=== PATIENT | male | born 1955 | race Caucasian/White ===

== ENCOUNTER 2020-01-03 08:15 | Emergency (ER) | payer OTHER ==
[~2020-01-03] VITALS: Ht 175.3 cm; Wt 84.5 kg
[2020-01-03 08:52] LABS: HEMATOCRIT 36.5 % (42.0-52.0); HEMOGLOBIN 12.2 gm/dL (14.0-18.0); MCH 27.5 pg (26.0-34.0); MCHC 33.5 g/dL (28.0-37.0); PLATELET COUNT 229 thou/uL (150-400); RBC 4.45 mil/uL (4.50-6.00); RDW 16.1 % (10.5-14.5); WBC 28.6 thou/uL (4.0-11.0)
[2020-01-03 08:53] LABS: CALCIUM 8.5 mg/dL (8.5-10.1); CREATININE 2.9 mg/dL (0.7-1.3)
[2020-01-03 09:03] LABS: ALBUMIN 2.9 g/dL (3.4-5.0); DIRECT BILIRUBIN 0.4 mg/dL (<0.1-0.2); TOTAL BILIRUBIN 1.4 mg/dL (0.2-1.0); TOTAL PROTEIN 7.5 g/dL (6.4-8.2); TROPONIN-I 0.2 ng/mL (<0.06)
[2020-01-03 09:14] LABS: APTT 28.9 Seconds (24.5-32.8); D-DIMER 4.69 ug/mLFEU (0.19-0.50); INR 1.1; PROTIME 10.9 Seconds (9.3-11.4)
[2020-01-03 09:25] LABS: BE(vivo) -6.7 mmol/L (-2 to +3); HCO3 16.3 mmol/L (22.0-26.0); PCO2 25.1 mmHg (35.0-45.0); PO2 100.6 mmHg (80.0-100.0); sO2 97.9 % (92.0-98.0)
[2020-01-03 09:33] VITALS: BP 124/82
[2020-01-03 09:53] LABS: URINE BILIRUBIN NEGATIVE (Negative); URINE BLOOD 3+ (Negative); URINE CLARITY CLOUDY; URINE COLOR YELLOW; URINE GLUCOSE-RANDOM* NEGATIVE (Negative); URINE KETONES NEGATIVE (Negative); URINE LEUKOCYTES-REFLEX NEGATIVE (Negative); URINE NITRITE-REFLEX NEGATIVE (Negative); URINE PROTEIN (DIPSTICK) 2+ (Negative); URINE SPECIFIC GRAVITY >= 1.030 (1.005-1.035); URINE UROBILINOGEN 0.2 E.U./dl (0.2-1.0)
[2020-01-03 10:09] LABS: AMP/METHAMP Negative (Negative); BARBITURATES Negative (Negative); BENZODIAZEPINES Negative (Negative); COCAINE Negative (Negative); METHADONE Negative (Negative); OPIATES Negative (Negative); PCP Negative (Negative)
[2020-01-03 10:31] LABS: AMORPHOUS URATES Few /LPF (None Seen); BACTERIA-REFLEX 1-9 Few /HPF (None Seen); CASTS None Seen /LPF (None Seen); SQUAMOUS 0-3 Few /LPF (0-3); URINE RBC None Seen /HPF (0-2); URINE WBC-REFLEX None Seen /HPF (0-5)
--- NOTE | 2020-01-03 11:14 | EKG ---
[facility] [place] [address] ELECTROCARDIOGRAM REPORT Name: GEO NG Room #: DEP M.R.#: [id number] Admission: 01/03/20 Attend Phys: Discharge: 01/03/20 Date of : 55 Report #: [id number] THIS REPORT FOR: cc: Julee Brady MD, Kristin E. 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: DOC : 1955 Requested By: Brett Shannon Order Number: [id number] MD: Alessandro Hess Measurements Intervals [place] Rate: 114 P: 61 WV: 134 QRS: -52 QRSD: 112 T: 114 QT: 356 QTc: 491 Interpretive Statements Sinus tachycardia Biatrial enlargement LVH with IVCD, LAD and secondary repol abnrm Borderline prolonged QT interval ST depression infero-laterla leads, possibly rate related Baseline wander in lead(s) V5 No previous ECG available for comparison Electronically Signed On 01-03-2020 11:14:34 CDT by Alessandro Hess [email or web address] <ELECTRONICALLY SIGNED> By: Alessandro Hess MD, FACC 01/03/20 1114 0 0 Alessandro Hess MD, [facility] /EPI
--- NOTE | 2020-01-03 11:42 | NUR ---
VAT CONSULTED FOR A STAT CENTRAL LINE IN ER FOR A TRIPLE A RUPTURE, ARRIVED WITHIN 5-8 MN AND SET UP CENTRAL LINE ACCESS. THIS PATIENT HAD 1 PIV PRIOR TO ARRIVAL AND WAS COLD, CLAMMY AND DIAPHORETIC, BUT ALERT. WHILE SETTING UP STERILE PROCEDURE THIS NURSE WAS NOTIFIED OF A STAT TX FOR THIS PATIENT TO [facility]. AT THIS TIME THE VAT IS UNABLE TO CONFIRM STAT PLACEMENT WE CURRENTLY DO NOT HAVE A 3cg DEVICE FOR IMMEDIATE CONFIRMATION AND RELEASE OF LINE. THIS PATIENT IS UNABLE TO WAIT FOR A XRAY CONFIRMATION SO DR. LOCKETT REQUESTED A 2ND PIV ACCESS INSTEAD DUE TO URGENT NEED OF TX AND THE INABILITY TO AWAUT FOR CONFIRMATION - A #20 PIV PLACED AT IN THE RIGHT JUGULAR WHICH WAS PREEPED PRIOR FOR CENTRAL ACCESS. LABS DRAWN AND PIV USSED IMMEDIATLY.
[2020-01-03 11:59] LABS: ABSOLUTE NEUTROPHILS 24.6 thou/uL (1.4-8.2); PLATELET ESTIMATE NORMAL
== END 2020-01-03 09:33 | disposition short-term general hospital (02) ==
LOC: ER 08:15
PROVIDERS: Emergency Medicine
DX: I71.3 Abdominal aortic aneurysm, ruptured (principal)